=== PATIENT | male | born 1955 | race American Indian/Alaskan Native ===

== ENCOUNTER 2018-09-12 16:43 | Emergency (ER) | payer BC ==
--- NOTE | 2018-09-12 17:25 | Event Note ---
ED Screening Note Date of service: 09/12/18 Time: 17:21 ED Screening Note: This is a 63 y.o. M. that presents to the ER with dizziness after waking from nap. Reports tingling to LUE. Denies pain, visual changes. Reports abnormal EKG and sent to have treadmill stress test last week. PMH of HTN This initial assessment/diagnostic orders/clinical plan/treatment(s) is/are subject to change based on patients health status, clinical progression and re- assessment by fellow clinical providers in the ED. Further treatment and workup at subsequent clinical providers discretion. Patient/guardian urged not to elope from the ED as their condition may be serious if not clinically assessed and ma naged. Initial orders include: Labs and CT of head
[2018-09-12] MEDS ORDERED: ANTIVERT PO ONE (19:36)
[2018-09-12] MEDS ORDERED: NACL 0.9% 1000 ML 1,000 ML IV ONE (19:36)
[2018-09-12 20:08] LABS: Basophils % (Auto) 0.3 % (0.0-1.8); Eosinophils % (Auto) 0.7 % (0.0-4.3); Hematocrit 44.7 % (35.5-45.6); Hemoglobin 14.7 gm/dl (11.8-15.2); Lymphocytes # (Auto) 1.4 K/mm3 (1.2-5.4); Lymphocytes % (Auto) 22.4 % (13.4-35.0); Mean Corpuscular HGB Conc 33 % (32-34); Mean Corpuscular Volume 74 fl (84-94); Monocytes # (Auto) 0.5 K/mm3 (0.0-0.8); Monocytes % (Auto) 7.5 % (0.0-7.3); Platelet Count 163 K/mm3 (140-440); Red Blood Count 6.09 M/mm3 (3.65-5.03); Red Cell Distribution Width 15.2 % (13.2-15.2)
--- NOTE | 2018-09-12 20:25 | XRay Report ---
CHEST 2 VIEWS INDICATION: dizziness. COMPARISON: None FINDINGS: Support devices: None. Heart: Within normal limits. Lungs/pleura: No acute air space or interstitial disease. No pneumothorax. Additional findings: None. IMPRESSION: 1. No acute findings. Signer Name: Oswaldo Xiong MD Signed: 09/12/2018 8:21 PM Workstation Name: [id number]
[2018-09-12 20:31] LABS: Alanine Aminotransferase 34 units/L (7-56); Albumin 4.5 g/dL (3.9-5); BUN/Creatinine Ratio 23; Blood Urea Nitrogen 25 mg/dL (9-20); Calcium 9.8 mg/dL (8.4-10.2); Hemolysis Index 13
--- NOTE | 2018-09-12 21:27 | Cat Scan Report ---
CT head without contrast INDICATION : dizziness. Woke up today feeling funny on the left side of the face, hypertension, head ache TECHNIQUE: Axial imaging performed from the skull apex through the skull base without the use of con trast. All CT scans at this location are performed using CT dose reduction for ALARA by means of aut omated exposure control. COMPARISON: None FINDINGS: Parenchyma: No acute intracranial hemorrhage or parenchymal abnormality. Ventricles: Ventricles are normal in size and appear symmetric. Soft tissues: Soft tissues including the orbits appear normal. Bones: No acute osseous abnormality. Sinuses: Sinuses and mastoid air cells are clear. IMPRESSION: No acute abnormality. Signer Name: Oswaldo Xiong MD Signed: 09/12/2018 9:23 PM Workstation Name: Powered by [id number]
[2018-09-12 21:50] VITALS: BP 144/93
--- NOTE | 2018-09-12 22:52 | Emergency Department Report ---
ED Dizziness HPI - General Chief Complaint: Dizziness Stated Complaint: DIZZINESS/L SIDE ARM/CHEST PAIN Time Seen by Provider: 09/12/18 17:20 Source: patient Mode of arrival: Ambulatory Limitations: No Limitations - History of Present Illness Initial Comments: Patient is a 63-year-old -[place] male with a history of hypertension who presents to the ED with complaint of acute onset persistent intermittent lightheadedness with left-sided chest wall pressure and left arm numbness and tingling for the last 8 hours intermittently. Patient states that he initially thought that his blood pressure was elevated but when he checked his blood pressure at home with a blood pressure cuff that he has a home his blood pressure was normal. Patient states that he decided to come to the ED for evaluation. Patient says that he had normal stress test several his primary care physician. Patient denies dizziness, shortness of breath, change in vision, nausea, vomiting, abdominal pain, back pain, neck pain, diaphoresis, cough, syncope or seizures. MD Complaint: dizziness, lightheadedness -: Sudden, hour(s) (8), This afternoon Timing: sudden onset, intermittent, waxing/waning Description: lightheadedness, off-balance History of Same: No History of Trauma: No Severity: moderate Improves With: nothing Worsens With: nothing Associated Symptoms: denies other symptoms. denies: ataxia, chest pain, c onfusion, cough, diaphoresis, loss of appetite, malaise, rash, seizure, shortness of breath, syncope, weakness - Related Data Allergies Allergy/AdvReac Type Severity Reaction Status Date / Time No Known Allergies Allergy Verified 09/12/18 17:24 ED Review of Systems ROS: Stated complaint: DIZZINESS/L SIDE ARM/CHEST PAIN Other details as noted in HPI Constitutional: malaise. denies: chills, fever Eyes: denies: eye pain, eye discharge, vision change ENT: denies: ear pain, throat pain Respiratory: denies: cough, shortness of breath, wheezing Cardiovascular: chest pain. denies: palpitations Endocrine: no symptoms reported Gastrointestinal: denies: abdominal pain, nausea, diarrhea Genitourinary: denies: urgency, dysuria Musculoskeletal: denies: back pain, joint swelling, arthralgia Skin: denies: rash, lesions Neurological: other (lightheadedness). denies: headache, weakness, paresthesias Psychiatric: denies: anxiety, depression Hematological/Lymphatic: denies: easy bleeding, easy bruising ED Past Medical Hx - Past Medical History Hx Hypertension: Yes - Surgical History Past Surgical History?: No - Social History Smoking Status: Never Smoker Substance Use Type: Alcohol ED Physical Exam - General Limitations: No Limitations General appearance: alert, in no apparent distress - Head Head exam: Present: atraumatic, normocephalic, normal inspection - Eye Eye exam: Present: normal appearance, PERRL, EOMI - ENT ENT exam: Present: normal exam, normal orophraynx, mucous membranes moist, TM's normal bilaterally, normal external ear exam - Neck Neck exam: Present: normal inspection, full ROM - Respiratory Respiratory exam: Present: normal lung sounds bilaterally. Absent: respiratory distress, wheezes, chest wall tenderness, accessory muscle use, decreased breath sounds, prolonged expiratory - Cardiovascular Cardiovascular Exam: Present: regular rate, normal rhythm, normal heart sounds. Absent: systolic murmur, diastolic murmur, rubs, gallop - GI/Abdominal GI/Abdominal exam: Present: soft, normal bowel sounds. Absent: distended, tenderness, guarding, hyperactive bowel sounds, hypoactive bowel sounds, organomegaly - Rectal Rectal exam: Present: deferred - Extremities Exam Extremities exam: Present: normal inspection, full ROM, normal capillary refill - Back Exam Back exam: Present: normal inspection, full ROM. Absent: tenderness, CVA tenderness (L), muscle spasm, paraspinal tenderness, vertebral tenderness - Neurological Exam Neurological exam: Present: alert, oriented X3, CN II-XII intact, normal gait, reflexes normal - Psychiatric Psychiatric exam: Present: normal affect, normal mood - Skin Skin exam: Present: warm, dry, intact, normal color. Absent: rash ED Course Vital Signs 09/12/18 09/12/18 17:21 21:49 Temperature 98 F Pulse Rate 95 H 62 Respiratory 16 20 Rate Blood Pressure 149/92 144/93 [Right] O2 Sat by Pulse 100 96 Oximetry - Reevaluation(s) Reevaluation #1: 09/12/18 22:54 The patient is alert and oriented 3 and is not in distress with normal vital signs. Patient walking around in the ED, pacing back and forth from his room in no distress. EKG shows normal sinus rhythm with a ventricular rate of 92 bpm, and nonspecific ST and T-wave abnormalities. Chest x-ray shows no acute cardiopulmonary abnormalities. Head CT scan without contrast shows no acute intracranial hemorrhage or abnormalities. Lab test results were reviewed and ar e all unremarkable and non-actionable including initial troponin levels and a troponin levels. Patient was treated in the ED with normal saline 1 L IV bolus and meclizine 25 mg tablet. Given the fact that the patient had a negative cardiac stress test 3 weeks ago, and test results are unremarkable including troponin levels, patient will be discharged home to follow up with his primary care physician. On reevaluation, patient stated that he is feeling much better, and was discharged home and advised to follow-up with his primary care physician in 2-3 days for reevaluation. 09/12/18 22:56 ED Medical Decision Making - Lab Data Result diagrams: 09/12/18 19:48 09/12/18 19:48 - EKG Data EKG shows normal: sinus rhythm Rate: normal - EKG Data Interpretation: normal EKG, nonspecific ST-T wave isabell, LVH - Radiology Data Radiology results: report reviewed, image reviewed Chest x-ray: No acute cardiopulmonary abnormalities Head CT Scan w/o contrast: No acute intracranial abnormalities or hemorrhage - Medical Decision Making The patient is alert and oriented 3 and is not in distress with normal vital signs. Patient walking around in the ED, pacing back and forth from his room in no distress. EKG shows normal sinus rhythm with a ventricular rate of 92 bpm, and nonspecific ST and T-wave abnormalities. Chest x-ray shows no acute cardiopulmonary abnormalities. Head CT scan without contrast shows no acute intracranial hemorrhage or abnormalities. Lab test results were reviewed and are all unremarkable and non-actionable including initial troponin levels and a troponin levels. Patient was treated in the ED with normal saline 1 L IV bolus and meclizine 25 mg tablet. Given the fact that the patient had a negative cardiac stress test 3 weeks ago, and test results are unremarkable including troponin levels, patient will be discharged home to follow up with his primary care physician. On reevaluation, patient stated that he is feeling much better, and was discharged home and advised to follow-up with his primary care physician in 2-3 days for reevaluation. - Differential Diagnosis dizziness, lightheadedness, ACS, Hypertension, lightheadedness Critical care attestation.: If time is entered above; I have spent that time in minutes in the direct care of this critically ill patient, excluding procedure time. ED Disposition Clinical Impression: Intermittent lightheadedness, Dehydration Disposition: DC-01 TO HOME OR SELFCARE Is pt being admited?: No Does the pt Need Aspirin: No Condition: Stable Instructions: Dehydration (ED), Lightheadedness (ED) Additional Instructions: Taking her regular medications at home, drink plenty of fluids and follow up with your primary care physician in 2-3 days for reevaluation. Return to the ED immediately if symptoms get worse. Referrals: JEANNIE BETTS MD [Primary Care Provider] - 3-5 Days Time of Disposition: 22:52 Print Language: CHINESE
== END 2018-09-12 23:00 | disposition home or self-care (01) ==
LOC: ED 16:43
DX: E86.0 Dehydration (principal); R42 Dizziness and giddiness; R07.89 Other chest pain; R20.0 Anesthesia of skin; I10 Essential (primary) hypertension
CPT/HCPCS: 36415; 70450; 71046; 80053; 82962; 83880; 84443; 84484; 85025; 93005; 93010; 96360; 99285; J7030